=== PATIENT | female | born 1970 | race African-American/Black ===

== ENCOUNTER 2025-03-11 15:50 | Emergency (ER) | payer BC, OTHER ==
[~2025-03-11] VITALS: Ht 157.5 cm; Wt 88.0 kg
[~2025-03-11 15:50] MED LIST: ATOR20TA MT
[2025-03-11 15:57] VITALS: TEMP 36.7; O2SAT 100
[2025-03-11 16:49] LABS: BASOPHILS % 0.5 % (0.0-2.0); HEMOGLOBIN. 12.9 g/dL (12.0-16.0); LYMPHOCYTES % 32.4 % (20.0-50.0); MEAN CORPUSCULAR HEMOGLOBIN 29.2 pg (28.0-32.0); MEAN CORPUSCULAR HGB CONC 33.8 g/dL (31.0-37.0); MEAN CORPUSCULAR VOLUME 86.4 fL (81.0-99.0); MEAN PLATELET VOLUME 8.5 fl (7.4-10.4); MONOCYTES % 4.6 % (2.0-8.0); NEUTROPHILS % 61.5 % (40.0-76.0); PLATELET 247 x1000/uL (130-400); RED CELL DISTRIBUTION WIDTH 13.2 % (11.6-14.6); WHITE BLOOD COUNT 9.1 x1000/uL (4.5-11.0)
[2025-03-11 16:56] LABS: CHLORIDE 106 mEq/L (98-107); POTASSIUM 3.8 mEq/L (3.5-5.1); SODIUM 144 mEq/L (136-145)
[2025-03-11 16:57] LABS: CALCIUM 9.6 mg/dL (8.7-10.4); CARBON DIOXIDE 32 mEq/L (21-32)
[2025-03-11 17:02] LABS: GLUCOSE 95 mg/dL (70-105); TROPONIN I HIGH SENSITIVITY 20 ng/L (3.0-34); UREA NITROGEN BLOOD 10 mg/dL (9-23)
[2025-03-11 17:13] LABS: PROTHROMBIN TIME 10.9 sec (9.6-11.0)
[2025-03-11 19:09] LABS: TROPONIN I HIGH SENSITIVITY 19 ng/L (3.0-34)
[2025-03-11] MEDS: HYDROCODONE/ACETAMINOPHEN 5/325MG TABLET PO ONE (19:51)
[2025-03-11 20:56] VITALS: BP 120/76; PULSE 72; RESP 12; O2SAT 100
== END 2025-03-11 20:59 | disposition home or self-care (01) ==
LOC: ER 15:50
DX: R07.89 Other chest pain (principal); N60.09 Solitary cyst of unspecified breast; Z90.710 Acquired absence of both cervix and uterus; Z79.899 Other long term (current) drug therapy
CPT/HCPCS: 36415; 71045; 80048; 83880; 84484; 85025; 93005; 99285